=== PATIENT | male | born 1935 | race Caucasian/White ===

== ENCOUNTER 2016-04-30 06:31 | Day surgery (SDC) | payer MEDICARE ==
[2016-04-18 15:09] VITALS: BMI 26.3
[~2016-04-30 06:31] MED LIST: LACTATED RINGERS 1,000 ML IV SCH
[2016-04-30 07:35] VITALS: RESP 18; TEMP 97.6
[2016-04-30] MEDS ORDERED: LIDOCAINE 1% 20 ML VIAL (10MG/ML) FOR IV START INTRADERMA ONE (07:36)
[2016-04-30 07:38] LABS: Glucose,Whole Blood 101 mg/dL (75-99)
[2016-04-30] MEDS ORDERED: MIDAZOLAM 2 MG/2 ML VIAL ONE (08:21)
[2016-04-30] MEDS ORDERED: BUPIVACAINE (PF) 0.5% 30 ML VIAL ONE (08:21)
--- NOTE | 2016-04-30 08:47 | P.PCN ---
Date of Procedure: 04/30/16 Preoperative Diagnosis: Lumbar spondylosis without myelopathy Postoperative Diagnosis: Lumbar spondylosis without myelopathy Procedure(s) Performed: Bilateral lumbar medial branch block under fluoroscopic guidance Implants: Anesthesia: MAC Surgeon: Atul Pacheco Pathology: none sent Condition: stable Disposition: PACU Indications for Procedure: Operative Findings: Description of Procedure: The patient was seen in preoperative holding area consent was obtained then was brought into the procedure room and placed in prone position. Skin was prepped with the ChloraPrep and draped in a sterile manner. Lidocaine 1% was used to numb the skin up at the target points that were chosen as follows: For the L5- S1 level which corresponds to the dorsal ramus of L5 the target points were of the superior medial aspect of the sacral ala on each side of the spine on the AP view of fluoroscopy and for the L3 and L4 medial branches the target points were at the connection between the transverse process and the superior articular process of L4 and L5 vertebra respectively on the oblique view of fluoroscopy. I used 22-gauge 3-1/2 inch Quincke spinal needle for this procedure and after contacting bone at the target points mentioned above I injected 1 mL of Marcaine 0.5%. Patient tolerated procedure well. No steroids and no fentanyl were given in this procedure.
--- NOTE | 2016-04-30 08:55 | FL ---
EXAMINATION TYPE: FL guided pain mgmt statistic DATE OF EXAM: 04/30/2016 8:48 AM HISTORY: Flouroscopy time 8 seconds of fluoroscopy provided. IMPRESSION: 1. Fluoroscopy time.
[2016-04-30] MEDS ORDERED: IV FLUID CONTINUATION 1,000 ML IV ONE (08:59)
[2016-04-30 09:22] VITALS: BP 169/74; PULSE 72
== END 2016-04-30 09:31 | disposition home or self-care (01) ==
LOC: ORPAIN 06:31
PROVIDERS: ATTEND Anesthesiology
DX: M47.816 Spondylosis without myelopathy or radiculopathy, lumbar region (principal)
CPT/HCPCS: 64493; 64494; 64495; J2250

== ENCOUNTER 2016-06-19 06:54 | Day surgery (SDC) | payer MEDICARE ==
[2016-06-18 09:40] VITALS: BMI 26.3
[2016-06-19] MEDS ORDERED: LACTATED RINGERS 1,000 ML IV SCH (07:15)
[2016-06-19] MEDS ORDERED: LACTATED RINGERS 1,000 ML IV ONE (07:45)
[2016-06-19 07:50] VITALS: RESP 18; TEMP 98
[2016-06-19] MEDS ORDERED: LIDOCAINE 1% 20 ML VIAL (10MG/ML) FOR IV START INTRADERMA ONE (08:09)
[2016-06-19] MEDS ORDERED: fentaNYL (PF) 50 MCG/ML 2 ML AMP ONE (08:36)
[2016-06-19] MEDS ORDERED: TRIAMCINOLONE ACETONIDE 40 MG/ML 1 ML VIAL ONE (08:36)
[2016-06-19] MEDS ORDERED: BUPIVACAINE (PF) 0.5% 30 ML VIAL ONE (08:36)
[2016-06-19] MEDS ORDERED: MIDAZOLAM 2 MG/2 ML VIAL ONE (08:36)
[2016-06-19 08:41] LABS: Glucose,Whole Blood 112 mg/dL (75-99)
--- NOTE | 2016-06-19 09:00 | P.PCN ---
Date of Procedure: 06/19/16 Procedure(s) Performed: PREOPERATIVE DIAGNOSIS: 1-Lumbar Spondylosis with Facet Arthropathy without myelopathy. 2- Lumber degenerative disc disease POSTOPERATIVE DIAGNOSIS: 1- Lumbar Spondylosis with Facet Arthropathy without myelopathy. 2- Lumber degenerative disc disease PROCEDURES : Right Radiofrequency thermocoagulation, L3-L4, L4-L5, and L5-S1 medial branch, with fluoroscopic guidance ANESTHESIA: IV sedation with versed 1 mg and fentaneyl 100 mcg and local infiltration with lidocaine 1% 6 ml EBL: Minimal PROCEDURE INDICATION: The patient with low back pain secondary to lumbar facet arthropathy who had more than 50% relief of her pain with previous diagnostic lumbar medial branch block with bupivacaine. PROCEDURE DESCRIPTION / TECHNIQUE: The patient was seen and identified in the preoperative area. Risks, benefits, complications, including but not limited to risk of infection ,bleeding , allergic reactions to the medications and no complete pain releife , and alternatives were discussed with the patient, the patient agreed to proceed with the procedure and signed the consent. IV was started. Vital signs remained stable throughout the procedure. Patient was taken to the OR and time out was completed. The patient was placed in the prone position on the procedure table. The lumber area was prepped and draped in the usual sterile fashion. . Vital signs were closely monitored during the procedure .IV sedation was used during the procedure to decrease patients anxiety. Using AP and then oblique fluoroscopy, the ``eye of the [place] dog corresponding to the connection between the superior and transverse articular processes of right L3, L4, and L5 were identified, marked, and localized with 1 % lidocaine. Subsequently, a 18 [id number] radiofrequency cannula with a 10- mm active tip was advanced guided by fluoroscopy to each of the ``eyes of the [place] dog at right L3, L4, and L5. Each site then underwent sensory testing at 50 Hz and 0 to 1 volt and motor testing at 2.5 Hz and 0 to 3 volt with local stimulation, but no radicular symptoms down the legs. Thereafter the right L3-4, L4-5, and L5-S1 sites underwent radiofrequency thermocoagulation at 80 degrees celsius for 90 seconds after injecting 0.5 ml of PF lidocaine 1%. then After the thermocoagulation done , 1 ml of the block solution containing Kenalog 40 mg and 3 ml of marain 0.5% was injected at the right L3-4 , L4-5 , and L5-S1, levels after negative aspiration of CSF and blood and with no paresthesias. Cannulas were retracted while injecting lidocaine 1% until the needle is out. At the end of the procedure, the skin was cleansed and bandages were applied. COMPLICATIONS: No acute complications. DISPOSITION / PLANS: The patient was placed in a supine position and transferred to the recovery area in a stable condition for observation and was discharged from the recovery room after meeting discharge criteria. Home discharge instructions given to the patient by the staff. The patient was reexamined prior to discharge. The patient will schedule a follow up in the clinic in 2-4 weeks.
--- NOTE | 2016-06-19 09:10 | FL ---
Fluoroscopy HISTORY: Pain 11 seconds fluoroscopy time supplied to the referring clinician. 3 intraoperative C-arm images docum ent the procedure. See dictated report from anesthesia.
[2016-06-19 09:42] VITALS: BP 184/81; PULSE 70
[2016-06-19] MEDS ORDERED: IV FLUID CONTINUATION 1,000 ML IV ONE (09:51)
[2016-06-19 09:54] LABS: Glucose,Whole Blood 133 mg/dL (75-99)
== END 2016-06-19 09:59 | disposition home or self-care (01) ==
LOC: ORPAIN 06:54
PROVIDERS: ATTEND Specialist
DX: M47.816 Spondylosis without myelopathy or radiculopathy, lumbar region (principal); M46.96 Unspecified inflammatory spondylopathy, lumbar region; M51.36 Other intervertebral disc degeneration, lumbar region
CPT/HCPCS: 64635; 64636 ×2; 99152; J2250; J3301; J3010

== ENCOUNTER → 2016-07-09 | Outpatient (CLI) | payer MEDICARE | LOC: LABWHC1 10:14 | PROVIDERS: ATTEND Physician Assistant Medical | DX: L12.0 Bullous pemphigoid (principal) | CPT/HCPCS: 36415; 83516 ==

== ENCOUNTER 2016-07-25 08:01 | Day surgery (SDC) | payer MEDICARE ==
[2016-07-23 10:54] VITALS: BMI 26.3
[2016-07-25 09:18] VITALS: BP 213/88
== END 2016-07-25 09:24 | disposition home or self-care (01) ==
LOC: ORPAIN 08:01
PROVIDERS: ATTEND Anesthesiology
DX: Z53.9 Procedure and treatment not carried out, unspecified reason (principal)

== ENCOUNTER 2016-08-29 07:34 | Day surgery (SDC) | payer MEDICARE ==
[2016-08-28 11:49] VITALS: BMI 26.3
[2016-08-29 08:04] VITALS: RESP 16; TEMP 97.6
[2016-08-29] MEDS ORDERED: LIDOCAINE 1% 20 ML VIAL (10MG/ML) FOR IV START INTRADERMA ONE (08:07)
[2016-08-29 08:18] LABS: Glucose,Whole Blood 101 mg/dL (75-99)
[2016-08-29] MEDS ORDERED: MIDAZOLAM 2 MG/2 ML VIAL ONE (09:08)
[2016-08-29] MEDS ORDERED: TRIAMCINOLONE ACETONIDE 40 MG/ML 1 ML VIAL ONE (09:08)
[2016-08-29] MEDS ORDERED: BUPIVACAINE (PF) 0.5% 30 ML VIAL ONE (09:08)
[2016-08-29] MEDS ORDERED: fentaNYL (PF) 50 MCG/ML 2 ML AMP ONE (09:08)
--- NOTE | 2016-08-29 09:30 | P.PCN ---
Date of Procedure: 08/29/16 Procedure(s) Performed: PREOPERATIVE DIAGNOSIS: 1-Lumbar Spondylosis with Facet Arthropathy without myelopathy. 2- Lumber degenerative disc disease. POSTOPERATIVE DIAGNOSIS: 1- Lumbar Spondylosis with Facet Arthropathy without myelopathy. 2- Lumber degenerative disc disease. PROCEDURES : Left Radiofrequency thermocoagulation, L3-L4, L4-L5, and L5-S1 medial branch, with fluoroscopic guidance ANESTHESIA: IV sedation with versed 1 mg and fentaneyl 50 mcg and local infiltration with lidocaine 1% 6 ml EBL: Minimal PROCEDURE INDICATION: The patient with low back pain secondary to lumbar facet arthropathy who had more than 50% relief of her pain with previous diagnostic lumbar medial branch block with bupivacaine. PROCEDURE DESCRIPTION / TECHNIQUE: The patient was seen and identified in the preoperative area. Risks, benefits, complications, including but not limited to risk of infection ,bleeding , allergic reactions to the medications and no complete pain releife , and alternatives were discussed with the patient, the patient agreed to proceed with the procedure and signed the consent. IV was started. Vital signs remained stable throughout the procedure. Patient was taken to the OR and time out was completed. The patient was placed in the prone position on the procedure table. The lumber area was prepped and draped in the usual sterile fashion. . Vital signs were closely monitored during the procedure .IV sedation was used during the procedure to decrease patients anxiety. Using AP and then oblique fluoroscopy, the ``eye of the [place] dog corresponding to the connection between the superior and transverse articular processes of left L3, L4, and L5 were identified, marked, and localized with 1 % lidocaine. Subsequently, a 18 -dl radiofrequency cannula with a 10- mm active tip was advanced guided by fluoroscopy to each of the ``eyes of the [place] dog at left L3, L4, and L5. Each site then underwent sensory testing at 50 Hz and 0 to 1 volt and motor testing at 2.5 Hz and 0 to 3 volt with local stimulation, but no radicular symptoms down the legs. Thereafter the left L3-4, L4-5, and L5-S1 sites underwent radiofrequency thermocoagulation at 80 degrees celsius for 90 seconds after injecting 0.5 ml of PF lidocaine 1%. then After the thermocoagulation done , 1 ml of the block solution containing Kenalog 40 mg and 3 ml of marain 0.5% was injected at the left L3-4 , L4-5 , and L5-S1, levels after negative aspiration of CSF and blood and with no paresthesias. Cannulas were retracted while injecting lidocaine 1% until the needle is out. At the end of the procedure, the skin was cleansed and bandages were applied. COMPLICATIONS: No acute complications. DISPOSITION / PLANS: The patient was placed in a supine position and transferred to the recovery area in a stable condition for observation and was discharged from the recovery room after meeting discharge criteria. Home discharge instructions given to the patient by the staff. The patient was reexamined prior to discharge. The patient will schedule a follow up in the clinic in 2-4 weeks.
--- NOTE | 2016-08-29 09:38 | FL ---
EXAMINATION TYPE: FL guided pain mgmt statistic DATE OF EXAM: 08/29/2016 9:30 AM HISTORY: Flouroscopy time 7 seconds of fluoroscopy provided. IMPRESSION: 1. Fluoroscopy time.
[2016-08-29] MEDS ORDERED: IV FLUID CONTINUATION 1,000 ML IV ONE (09:39)
[2016-08-29 09:58] VITALS: BP 168/75; PULSE 68
== END 2016-08-29 10:17 | disposition home or self-care (01) ==
LOC: ORPAIN 07:34
PROVIDERS: ATTEND Specialist
DX: M47.816 Spondylosis without myelopathy or radiculopathy, lumbar region (principal); M46.96 Unspecified inflammatory spondylopathy, lumbar region; M51.36 Other intervertebral disc degeneration, lumbar region
CPT/HCPCS: 64635; 64636 ×2; 99152; J2250; J3301; J3010

== ENCOUNTER → 2016-10-22 | Outpatient (CLI) | payer MEDICARE ==
[2016-10-22 12:46] VITALS: BP 180/86; PULSE 77; RESP 16; TEMP 97.6
--- NOTE | 2016-10-22 13:07 | P.PN ---
Progress Note - Text Patient returns for followup for chronic back pain with radiation to hips and legs, mostly above knees. Patient recently underwent bilateral lumbar RFA, which provided some relief for 1-2 months' interval. Patient continues on aspirin only medications for pain with some relief. Patient denies adverse drug effects from medications. Today, pt denies new-onset weakness, bowel/ bladder incontinence, or any other signs or symptoms of cauda equina syndrome. There are no signs of acute intoxication, and no indications of medication diversion or overuse. In addition to above, 13-point review of systems is also negative for chest pain , shortness of breath, changes in vision, changes in hearing, new onset weakness , abdominal pain, diarrhea, extreme fatigue, malaise, fever, skin changes, homicidal or suicidal ideation, or bowel or bladder incontinence. Vital Signs: Reviewed in EMR Gen: WDWN, AAOx3, NAD HEENT: NCAT, EOMI, hearing grossly normal Pulm: resp unlabored Abd: soft, NT, ND Neck: supple, trachea midline ROM in flexion lumbar spine: reduced ROM in extension lumbar spine: reduced Lumbar paravertebral tenderness: + Facet loading: + bilateral SI joint tenderness: + R > L Elver's test: + R > L Straight leg raise: neg Neuro: CN II-XII grossly intact, muscle strength lower extremities PRESERVED Imaging: Reviewed in EMR Assessment: 1. lumbar spinal stenosis 2. lumbar spondylosis without myelopathy 3. lumbar disc herniations Plan: 1. Explanation: Opioid and psychological risk scores were reviewed. Diagnoses , prognoses, and multiple treatment options including but not limited to physical therapy, interventional therapies, adjuvant medical therapies, narcotic medication therapies, and surgery were discussed with the patient and all questions were answered to the patient's satisfaction. 2. Opioid agreement: no opioids prescribed today 3. Counseling: The patient was counseled extensively on BODY MASS INDEX, EXERCISE. Specifically, the patient was instructed regarding the importance of weight control and exercise in the context of both chronic pain and overall health. 4. Procedures: LESI x 2 5. Consultations: None 6. Investigations: None 7. Medications: none prescribed 8. Disposition: f/u for re-eval as scheduled PQRS measures: 1-Patient's medications are documented in the chart. 2-Tobacco use is negative 3-Patient has not had a pneumococcal vaccine. 4-Advanced care planning discussed, patient unable to give. 5-Opioid contract NOT signed with the patient. 6-Pain positive, follow-up visit or procedure scheduled 7-Patient's blood pressure measured and documented, and patient will follow up with the primary care physician due to hypertension. 8-Patient's weight was measured, and body mass index ABOVE the normal limits, and counseling was done. Patient instructed to follow up with PCP. 9-Patient WAS NOT identified as an unhealthy alcohol user.
== END ==
LOC: PNWHC3 11:59
PROVIDERS: ATTEND Anesthesiology
DX: M48.06 Spinal stenosis, lumbar region (principal); M51.26 Other intervertebral disc displacement, lumbar region; M47.816 Spondylosis without myelopathy or radiculopathy, lumbar region; Z79.891 Long term (current) use of opiate analgesic
CPT/HCPCS: 99211

== ENCOUNTER 2016-11-20 08:35 | Day surgery (SDC) | payer MEDICARE ==
[2016-11-20] MEDS ORDERED: LACTATED RINGERS 1,000 ML IV SCH (09:30)
[2016-11-20 09:49] VITALS: RESP 16; TEMP 97.1
[2016-11-20 09:58] LABS: Glucose,Whole Blood 112 mg/dL (75-99)
[2016-11-20] MEDS ORDERED: LIDOCAINE 1% 20 ML VIAL (10MG/ML) FOR IV START INTRADERMA ONE (09:59)
[2016-11-20] MEDS ORDERED: LACTATED RINGERS 1,000 ML IV ONE (09:59)
--- NOTE | 2016-11-20 10:30 | P.PCN ---
Date of Procedure: 11/20/16 Preoperative Diagnosis: Postoperative Diagnosis: Procedure(s) Performed: Implants: Surgeon: Moi Oquendo Pathology: none sent Condition: stable Disposition: PACU Indications for Procedure: Operative Findings: Description of Procedure: PREOPERATIVE DIAGNOSIS: 1-Lumbar radiculitis. POSTOPERATIVE DIAGNOSIS: 1-Lumbar radiculitis. PROCEDURE 1. Lumbar epidural steroid injection under fluoroscopic guidance at the L5-S1 level. 2. Lumbar epidurogram. ANESTHESIA: Local with 1% lidocaine; IV sedation with Versed/fentanyl. EBL: Minimal PROCEDURE INDICATION: The patient with low back pain and radiculitis symptoms unresponsive to conservative treatment. Fluoroscopy was used to optimize visualization of the needle placement and to maximize safety. No use of blood thinners. PROCEDURE DESCRIPTION / TECHNIQUE: The patient was seen and identified in the preoperative area. Risks, benefits, complications, and alternatives were discussed with the patient, including but not limited to bleeding, infection, nerve damage, allergic reactions to medications, and incomplete pain relief. The patient agreed to proceed with the procedure and signed the consent after all questions were answered. IV was started, and vital signs were stable. Patient was taken to the OR and time out was completed to confirm patient position, procedure, laterality of pain, and allergies. The patient was placed in the prone position on procedure table and a pillow was placed under the abdomen to reduce lumbar lordosis. The lumbosacral area was prepped and draped in the usual sterile fashion. Critical pause was taken. Vital signs were closely monitored during the procedure. Conscious sedation was used during the procedure to decrease patients anxiety. Using anterior-posterior fluoroscopy, the L5-S1 interlaminar space was identified and the skin over this site was marked and then infiltrated with 1% lidocaine subcutaneously. Subsequently, a 20-gauge Tuohy epidural needle was inserted and advanced toward the epidural space using the Loss of resistance technique and guided by AP and lateral fluoroscopy. The correct needle position in the epidural space was verified with the injection of 2 mL of the water soluble contrast dye Omnipaque 300 contrast and observing an excellent epidurogram with the epidural spread of the dye, after negative aspiration for blood and CSF and in the absence of paresthesias. Again after negative aspiration, a 8 ml mixture containing 20 mg of PF Decadron and 5 ml of preservative free Normal Saline, and 2 ml of preservative free lidocaine 1% solution was injected and a washout of epidurogram was seen. Needle was withdrawn intact, skin was cleansed, and bandages were applied. COMPLICATIONS: None COMMENTS: DISPOSITION / PLANS: The patient was placed in a supine position and transferred to the recovery area in a stable condition for observation. There was no evidence of lower extremity motor or sensory deficit after the procedure. Patient was discharged from the recovery room after meeting discharge criteria. Home discharge instructions were given to the patient by the staff. The patient was reexamined prior to discharge and there were no issues. The patient will schedule a repeat procedure in 2-4 weeks.
--- NOTE | 2016-11-20 10:41 | FL ---
FLUOROSCOPY 8 seconds of fluoroscopy time were utilized during Pain Injection. 3 images document the procedure.
[2016-11-20] MEDS ORDERED: IV FLUID CONTINUATION 1,000 ML IV ONE (10:44)
[2016-11-20 11:09] VITALS: BP 157/72; PULSE 60
== END 2016-11-20 11:19 | disposition home or self-care (01) ==
LOC: ORPAIN 08:35
PROVIDERS: ATTEND Anesthesiology
DX: G89.29 Other chronic pain (principal); M48.06 Spinal stenosis, lumbar region; M47.816 Spondylosis without myelopathy or radiculopathy, lumbar region; M51.16 Intervertebral disc disorders with radiculopathy, lumbar region; I10 Essential (primary) hypertension
CPT/HCPCS: 62323; J2250; J1100; Q9965; J3010; 99152

== ENCOUNTER → 2016-12-19 | Outpatient (CLI) | payer MEDICARE ==
--- NOTE | 2016-12-19 17:01 | US ---
EXAMINATION TYPE: US kidneys/renal and bladder DATE OF EXAM: 12/19/2016 COMPARISON: 03/15/2014 CLINICAL HISTORY: R30.0 Dysuria. Dysuria x 2-3 weeks EXAM MEASUREMENTS: Right Kidney: 12.8 x 5.6 x 4.2 cm Left Kidney: 11.5 x 5.2 x 4.4 cm Right Kidney: cystic area upper pole = 2.5 x 2.6 x 2.8cm . This measured 2.6 x 2.8 x 2.8 cm on the p rior examination. Left Kidney: cystic area upper pole = 2.4 x 2.4 x 2.3cm . This measured 3.1 x 2.0 x 2.9 cm on the p rior examination. Bladder: appears wnl Bilateral Jets seen: yes There is no evidence for hydronephrosis at this point in time. No nephrolithiasis is seen. The uri nary bladder is anechoic. Bilateral ureteral jets are seen. IMPRESSION: Bilateral simple appearing renal cysts, minimally decreased in size from the prior examination. No ev idence of hydronephrosis or nephrolithiasis.
== END ==
LOC: RADUSWWP 16:04
PROVIDERS: ATTEND Family Medicine
DX: N28.1 Cyst of kidney, acquired (principal); R30.0 Dysuria
CPT/HCPCS: 76770

== ENCOUNTER → 2017-01-13 | Outpatient (CLI) | payer MEDICARE ==
[2017-01-13 13:40] VITALS: BP 217/84; PULSE 65; RESP 16; TEMP 97.5
--- NOTE | 2017-01-13 14:01 | P.PN ---
Progress Note - Text This is an 81-year-old gentleman with history of lower back pain that responded only partially and temporarily to previous injections including lumbar epidurals and medial branch RFA. The patient states that he has whitecoat syndrome was increasing blood pressure on his in the hospital and he does not want to have any more injections because of that. The patient's pain is mechanical and starts with activities including standing and walking around , it goes away within 2-3 minutes after he sits down. The risk of opioid abuse at this age is very low and that's why I am going to prescribe [place] 5 mg to be taken as 1/2-1 pill half an hour before his planned activities. The patient is warned that he might have constipation and he should continue taking his a stool softener and if his constipation continues to be severe and then he should contact us 7 give him stronger medicine for that. We will see the patient next month for reevaluation meanwhile he'll give us a call in a few days to let us know how he is doing with the current treatment.
== END | disposition home or self-care (01) ==
LOC: PNWHC3 13:20
PROVIDERS: ATTEND Anesthesiology
DX: M54.89 Other dorsalgia (principal); Z79.899 Other long term (current) drug therapy
CPT/HCPCS: 99211

== ENCOUNTER → 2017-03-13 | Outpatient (CLI) | payer MEDICARE ==
[2017-03-13 11:49] VITALS: BP 164/79; PULSE 70; RESP 16; TEMP 97.9
--- NOTE | 2017-03-13 18:47 | P.PN ---
Subjective Progress Note Date: 03/13/17 This is a follow-up visit for 81 years old male with a chronic history of severe low back pain, diagnosed with lumbar degenerative disc disease and lumbar spondylosis with facet arthropathy without myelopathy , we have done lumbar epidural steroid injections patient had no benefit from it, and we have done radiofrequency ablation of the medial branch lumbar area ,patient reports, that he had no benefit from it, he continue to have severe ,localized pain ,in the low back area without any radiation to the lower extremities, denies any fever or night sweats he denies any numbness or tingling sensation, no change in the bowel movement or urination, he was given prescription for [place] 5/325 and he reported that made him very constipated, and he stopped taking it, Objective - Vital Signs Vital signs: Vital Signs Temp 97.9 F 03/13/17 11:40 Pulse 70 03/13/17 11:40 Resp 16 03/13/17 11:40 BP 164/79 03/13/17 11:40 Pulse Ox Intake & Output 03/12/17 03/13/17 03/13/17 18:59 06:59 18:59 Weight 89.811 kg - Exam Physical Examinations : 1-Constitutiona : Cooperative , not in acute distress . 2-HEENT : nech ; supple , no Lymphadenopathy , normal thyroid size . eyes : no ptosis , no icterus, no photophobia . ENT : normal of hearing , normal oropharynx , no Thrush . 3- Respiratory : Chest clear to auscultations Bilaterally , no wheezing , no Rhonchi . 4- Cardiovascular : regular rate and rhythem , S1 , S2 , no S3 , no S4. 5- Gastrointestinal : abdomen soft no tenderness , bowel sounds positive all four quadrents , no organomegally . 6- Genitourinary : Defferred . 7- neurologic : Cranial nerve II to XII intact , no focal neurological deffecit . 8-psychatric : alert , oriented X 3 , appropriate affect , intact judgment and insight . 9-Lymphatic : no Lymphadenopathy . 10- musculoskeltal : , Lumber spine = normal moter stegnth lower extremities ,thigh and legs .5/5 , normal sensation in the lower extremities deep tendon reflexes : normal Knee Jerk , normal ankle Jerk . positive lumber facet Loading Test strait leg raising test negative bilaterally Fabere test negative bilaterally no tenderness over the Sacroiliac joint on the Right , and Left side Assessment and Plan Plan: Assessment and plan= chronic low back pain secondary to lumbar degenerative disc disease , lumbar spondylosis with lumbar facet arthropathy , spinal stenosis Patient had no benefit from the radiofrequency ablation of the medial branch lumbar area, and he had no benefit from lumbar epidural steroid injections Patient had side effects from the [place] and he stopped taking it because score severe constipation . Started taking Flexeril milligrams half a tablet twice a day, patient could benefit from a non-steroidal anti-inflammatory medication and he will be started on Mobic 7.5 mg daily, earnest with the patient option of referring him to have [place] by a neurosurgeon for possible surgical intervention, and patient prefer not to have surgery at this point he preferred to try medication management, and he will be seen in the pain clinic in a few weeks we'll evaluate if he continued to have severe pain then we have to discussed with the patient the option of referring him to have spinal cord stimulator (NEVRO ) and [facility] [place] [facility]'t provide this service at [facility], and option is to refer him for neurosurgical/spine surgeon for evaluation hospital surgical interventions
== END | disposition home or self-care (01) ==
LOC: PNWHC3 11:15
PROVIDERS: ATTEND Specialist
DX: M48.061 Spinal stenosis, lumbar region without neurogenic claudication (principal); M51.36 Other intervertebral disc degeneration, lumbar region; M47.816 Spondylosis without myelopathy or radiculopathy, lumbar region; M46.86 Other specified inflammatory spondylopathies, lumbar region
CPT/HCPCS: 99211

== ENCOUNTER → 2017-11-21 | Outpatient (CLI) | payer MEDICARE ==
--- NOTE | 2017-11-21 12:52 | XR ---
EXAMINATION TYPE: XR cervical spine comp DATE OF EXAM: 11/21/2017 COMPARISON: NONE HISTORY: Pain TECHNIQUE: Four views are submitted. FINDINGS: The odontoid is intact. There are no compression deformities. The prevertebral soft tissue structur es are within normal limits. Calcification the soft tissue the left neck likely vascular related to the carotid arteries. There is multilevel severe degenerative disc disease, facet arthropathy and hyp ertrophic changes. There is foraminal encroachment all levels with most marked findings at C3-C4 on t he left. 2 to 3 mm retrolisthesis of C6 relative to C7. IMPRESSION: 1. Multilevel severe degenerative disc disease and multilevel foraminal encroachment. Recommend follo w-up MRI.
== END | disposition home or self-care (01) ==
LOC: RADXRMAIN 11:37
PROVIDERS: ATTEND Family Medicine
DX: M50.30 Other cervical disc degeneration, unspecified cervical region (principal)
CPT/HCPCS: 72050

== ENCOUNTER → 2018-07-08 | Outpatient (CLI) | payer MEDICARE ==
--- NOTE | 2018-07-08 11:44 | US ---
EXAMINATION TYPE: US kidneys/renal and bladder DATE OF EXAM: 07/08/2018 COMPARISON: 12/19/2016 CLINICAL HISTORY: N28.1 renal cyst. f/u renal cyst EXAM MEASUREMENTS: Right Kidney: 11.2 x 4.5 x 5.5 cm Left Kidney: 11.1 x 5.8 x 6.4 cm Right Kidney: 2.9cm superior pole simple cyst . This previously measured 2.5 x 2.6 x 2.8 cm. Left Kidney: 3.0cm superior pole cyst, smaller cysts seen but only measured largest. This previously measured 3.1 x 2.0 x 2.9 cm. Bladder: wnl Bilateral Jets seen: no There is no evidence for hydronephrosis at this point in time. No nephrolithiasis is seen. The urin soraya bladder is anechoic. Bilateral ureteral jets are seen. IMPRESSION: Similar size of the bilateral renal cysts appearing simple and benign.
== END | disposition home or self-care (01) ==
LOC: RADUSWWP 10:46
PROVIDERS: ATTEND Internal Medicine Nephrology
DX: N28.1 Cyst of kidney, acquired (principal)
CPT/HCPCS: 76770

== ENCOUNTER → 2019-01-27 | Outpatient (CLI) | payer MEDICARE ==
--- NOTE | 2019-01-27 11:31 | XR ---
EXAM TYPE: LUMBAR SPINE X RAY SERIES COMPARISON: NONE HISTORY: Pain TECHNIQUE: 3 views are submitted. FINDINGS: Alignment is anatomic. The pedicles are intact. The transverse processes are intact. Hypertrophic a nd degenerative changes of the lumbar spine are noted with severe degenerative disc disease L4-5 and L5-S1. Multilevel facet arthropathy. There is vascular calcifications. Question a small rounded intra osseous lytic lesion of the L4 vertebral body. IMPRESSION: 1. Multilevel degenerative disc disease with severe changes L4-5 and L5-S1. Foraminal encroachment mario spected. Additionally there is a round lucency may represent a small intraosseous lesion of the L4 ve rtebral body. MRI recommended
== END | disposition home or self-care (01) ==
LOC: RADXRMAIN 11:01
PROVIDERS: ATTEND Family Medicine
DX: M51.36 Other intervertebral disc degeneration, lumbar region (principal); M51.37 Other intervertebral disc degeneration, lumbosacral region
CPT/HCPCS: 72100

== ENCOUNTER → 2019-05-10 | Outpatient (CLI) | payer MEDICARE ==
[2019-05-10 19:56] LABS: African American GFR (CKD) 58.1 (60.0-200.0); Albumin 4.2 g/dL (3.80-4.90); Albumin/Globulin Ratio 1.83 (1.60-3.17); BUN/Creat Ratio 19.23 Ratio (12.00-20.00); Calcium 9.1 mg/dL (8.7-10.3); Globulin 2.3 g/dL (1.6-3.3); Magnesium 1.8 mg/dL (1.5-2.4); Non-African American GFR(CKD) 50.1 (60.0-200.0); Potassium 4.7 mmol/L (3.5-5.5); Total Bilirubin 0.4 mg/dL (0.3-1.2); Total Protein 6.5 g/dL (6.2-8.2)
== END | disposition home or self-care (01) ==
LOC: LABWHC1 11:51
PROVIDERS: ATTEND Family Medicine
DX: E87.1 Hypo-osmolality and hyponatremia (principal); R55 Syncope and collapse; I35.9 Nonrheumatic aortic valve disorder, unspecified
CPT/HCPCS: 36415; 80053; 83735; 83930; 83935; 84300